=== PATIENT | female | born 2000 | race African-American/Black ===

== ENCOUNTER 2021-05-30 10:46 | Emergency (ER) | payer OTHER ==
[~2021-05-30] VITALS: Ht 160 cm; Wt 63.6 kg
[2021-05-30] MEDS ORDERED: IBUPROFEN 600 MG TABLET PO ONE (11:45)
[2021-05-30] MEDS ORDERED: IBUPROFEN 600 MG TABLET ONE (11:55)
[2021-05-30 11:56] LABS: BASOPHILS % (AUTO) 0.4 % (0.0-2.0); EOSINOPHILS % (AUTO) 1.5 % (1.0-6.0); HEMATOCRIT 34.3 % (36-46); HEMOGLOBIN 10.8 g/dL (12.0-16.0); LYMPHOCYTES # (AUTO) 1.8 K/uL (1.0-4.8); LYMPHOCYTES % (AUTO) 30.3 % (22.0-44.0); MEAN CORPUSCULAR HGB CONC 31.5 G/dL (31.0-37.0); MEAN CORPUSCULAR VOLUME 73 fL (80-100); MONOCYTES # (AUTO) 0.4 K/uL (0.1-1.0); MONOCYTES % (AUTO) 7.1 % (2.0-9.0); NEUTROPHILS # (AUTO) 3.7 K/uL (1.8-7.7); NEUTROPHILS % (AUTO) 60.7 % (40.0-70.0); PLATELET COUNT (AUTO) 297 K/uL (150-450); RED CELL DISTRIBUTION WIDTH 14.6 % (11.5-14.5)
[2021-05-30] MEDS ORDERED: IBUPROFEN 100 MG/5 ML SUSPENSION UDCUP ONE (12:05)
[2021-05-30 12:07] LABS: ANION GAP 9 mmol/L (8-16); CARBON DIOXIDE 29 mmol/L (22-29); CHLORIDE 101 mmol/L (98-107); CREATININE 0.57 mg/dL (0.60-1.30); GLUCOSE,RANDOM 88 mg/dL (70-110); POTASSIUM 4.1 mmol/L (3.5-5.1); SODIUM SERUM 139 mmol/L (136-145); UREA NITROGEN, BLOOD 13 mg/dL (7-18)
[2021-05-30 12:08] LABS: CALCIUM, TOTAL 9.1 mg/dL (8.8-10.5); GLOMERULAR FILTR. RATE CALC > 60 mL/min (>60)
[2021-05-30 12:30] LABS: HCG,QUANTITATIVE < 1 mIU/mL (0-6)
[2021-05-30] MEDS ORDERED: CEPH250S56 PO (14:07)
[2021-05-30 14:15] VITALS: BP 121/63
== END 2021-05-30 15:08 | disposition home or self-care (01) ==
LOC: EMS 10:46
DX: L03.115 Cellulitis of right lower limb (principal); Z79.899 Other long term (current) drug therapy
CPT/HCPCS: 80048; 84702; 85025; 99284